=== PATIENT | female | born 1985 | race Caucasian/White ===

== ENCOUNTER 2022-02-12 22:06 | Emergency (ER) | payer SELFPAY | END 2022-02-13 01:54 | LOC: JD.ED 22:06 | DX: F10.129 Alcohol abuse with intoxication, unspecified (principal); J32.9 Chronic sinusitis, unspecified; E66.9 Obesity, unspecified; Z68.30 Body mass index [BMI] 30.0-30.9, adult | CPT/HCPCS: 99284 ==

== ENCOUNTER 2022-09-17 14:08 | Emergency (ER) | payer BC ==
[2022-09-17] MEDS ORDERED: Sodium Chloride 0.9% 10 ML Syringe FLUSH PRN (15:02)
[2022-09-17] MEDS ORDERED: Metoclopramide 10 MG/2 ML SDV IVPUSH ONE (15:02)
[2022-09-17] MEDS ORDERED: HYDROmorphone 0.5 MG/0.5 ML Syringe IVPUSH ONE (15:04)
[2022-09-17] MEDS ORDERED: diphenhydrAMINE 50 MG/ML SDV IVPUSH ONE (15:04)
[2022-09-17] MEDS ORDERED: Sodium Chloride 0.9% 1,000 ML IV ONE (16:08)
== END 2022-09-17 17:30 | disposition home or self-care (01) ==
LOC: JD.ED 14:08
DX: O99.891 Other specified diseases and conditions complicating pregnancy (principal); R51.9 Headache, unspecified; O99.212 Obesity complicating pregnancy, second trimester; E66.9 Obesity, unspecified; Z3A.14 14 weeks gestation of pregnancy
CPT/HCPCS: 36415; 80053; 81001; 85025; 96360; 99284; J7030